=== PATIENT | female | born 2000 | race Caucasian/White ===

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

== ENCOUNTER 2019-05-02 18:16 | Emergency (ER) | payer BC, OTHER ==
[~2019-05-02] VITALS: Ht 165.1 cm; Wt 89.9 kg
[2019-05-02 18:30] VITALS: BP 156/100
--- NOTE | 2019-05-02 19:07 | NUR ---
REPORT RECEIVED FROM VIDA NAM
[2019-05-02] MEDS ORDERED: KETOROLAC 30 MG/ML VIAL IVP ONE (19:15)
--- NOTE | 2019-05-02 19:27 | NUR ---
18 Y/F PRESENTS TO ED WITH CP/ PRESSURE 8/10 THIS AFTERNOON WHILE LYING DOWN AND HEADACHE. PAINT LASTED FOR A FEW MINUTES AND SUBSIDED. PT ALSO REPORTS HARO, SOB AND L ARM PAIN. PT DENIES NAUSEA. MEDICATION- DENIES PMH- DENIES
--- NOTE | 2019-05-02 19:28 | NUR ---
REPORT GIVEN TO KELSEY MCPHERSON FOR CONTINUITY OF CARE
[2019-05-02 19:39] LABS: APPEARANCE,URINE HAZY (CLEAR); BILIRUBIN,URINE NEGATIVE (NEGATIVE); BLOOD, URINE TRACE-I (NEGATIVE); COLOR,URINE YELLOW (YELLOW); LEUKOCYTE ESTERASE ,URINE 2+ (NEGATIVE); NITRITE, URINE NEGATIVE (NEGATIVE); PH,URINE 6.5 (5.0-9.0); UGLUCOSE NEGATIVE (NEGATIVE)
[2019-05-02 19:44] LABS: BARBITURATE, URINE NEG. ng/ml (NEG <=200); BENZODIAZEPINE, URINE NEG. ng/mL (NEG <=200); CANNABINOID, URINE NEG. ng/mL (NEG <=50); COCAINE, URINE NEG. ng/mL (NEG <=300); OPIATE, URINE NEG. ng/mL (NEG <=2000); PHENCYCLIDINE SCREEN,URINE NEG. ng/mL (NEG <=25)
--- NOTE | 2019-05-02 20:10 | NUR ---
PT LAYING IN BED WITH 0/10 PAIN AT THIS TIME. FAMILY AT BEDSIDE.
[2019-05-02 20:26] LABS: BASOPHILS % (AUTO) 0.4 % (0.0-2.0); EOSINOPHILS # (AUTO) 0.2 K/uL (0-0.4); EOSINOPHILS % (AUTO) 2.3 % (0.0-4.0); HEMATOCRIT 40.4 % (36-48); HEMOGLOBIN 14.1 g/dL (12.0-16.0); LYMPHOCYTES # (AUTO) 2.2 K/uL (2.5-16.5); LYMPHOCYTES % (AUTO) 23.7 % (20.5-51.1); MEAN CORPUSCULAR HEMOGLOBIN 29 pg (27-31); MEAN CORPUSCULAR HGB CONC 35 g/dL (33-37); MEAN CORPUSCULAR VOLUME 82.9 fL (80-94); MONOCYTES # (AUTO) 0.8 K/uL (0.8-1.0); NEUTROPHILS # (AUTO) 6.2 K/uL (1.8-7.7); NEUTROPHILS % (AUTO) 65.6 % (42.2-75.2); PLATELET COUNT (AUTO) 327 K/uL (140-450); RED BLOOD CELL COUNT(AUTO) 4.87 MIL/uL (4.20-5.40); RED CELL DISTRIBUTION WIDTH 13.2 % (11.6-13.7); WHITE BLOOD COUNT (AUTO) 9.4 K/uL (4.5-11.0)
[2019-05-02 20:27] LABS: RBC,URINE 0-5 /HPF (0-5)
[2019-05-02 20:48] LABS: ALBUMIN 3.8 g/dL (3.4-5.0); ANION GAP 13.8 (8-16); CARBON DIOXIDE 25.9 mmol/L (21-32); CREATININE 0.6 mg/dL (0.6-1.3); POTASSIUM 3.7 mmol/L (3.5-5.1); TOTAL BILIRUBIN 0.2 mg/dL (0.0-1.0)
[2019-05-02 21:46] LABS: CREATINE KINASE MB 0.2 ng/mL (0-3.6)
--- NOTE | 2019-05-02 22:20 | NUR ---
PT CO NO PAIN AT THIS TIME. VSS.
[2019-05-02] MEDS ORDERED: cefTRIAXone 1,000 MG VIAL ONE (22:49)
[2019-05-02 23:37] VITALS: BP 120/89
--- NOTE | 2019-05-02 23:38 | NUR ---
IV removed, catheter intact and site benign. Applied folded 4x4 gauze and tape to stop bleeding.
--- NOTE | 2019-05-02 23:38 | NUR ---
Patient discharged with v/s stable. Written and verbal after care instructions given and explained. Patient verbalized understanding. Ambulatory with steady gait. All questions addressed prior to discharge. Advised to follow up with PMD.
== END 2019-05-02 23:38 | disposition home or self-care (01) ==
LOC: MED 18:16
DX: N39.0 Urinary tract infection, site not specified (principal)
CPT/HCPCS: 36415; 71045; 80053; 80305; 81001; 81025; 82550; 82553; 84484; 85025; 85379; 87086; 93005; 96365; 96375; 99285; J0696; J1885; Q0092